=== PATIENT | female | born 1975 | race Caucasian/White ===

== ENCOUNTER 2024-07-12 08:51 | Day surgery (SDC) | payer SELFPAY, OTHER ==
[2024-07-12] VITALS (11 sets, daily range): BP systolic 105–126; BP diastolic 62–79; PULSE 67–77; RESP 16–20; TEMP 36.7–37.4; O2SAT 96–100; BMI 32.1
--- NOTE | 2024-07-12 | EMB_PTH ---
PATIENT: MAYKEL MARR LOC: [facility] – [place] U#:[id number] AGE/SX: 48/F ROOM: RE07/12/[address]: Dr. Diana Danielle DO : 1975 BED: DIS: 07/12/2024 SPEC #: [id number] RECD: 07/12/24 13:37 STATUS: HAY REChristal #: [id number] SAMMI: 07/12/24 00:[address]: Diana Danielle DEPT: SURGICAL PATHOLOGY RECD BY: Henrique Zavaleta ENTERED: 07/12/24 13:38 SP TYPE: ENDOM BX/C JUANCARLOS DR: Dr. Yimi Miles MD Tissues: Endometrium, NOS Procedures: Surgery Specimen Level IV HEADER OPERATION: Hysteroscopy with dilation and curettage PRE-OP DIAGNOSIS: Menorrhagia TISSUE SUBMITTED: Endometrial curettings MICROSCOPIC DIAGNOSIS Endometrial curettings: Weakly proliferative endometrium with extensive exogenous hormone effects. See comment. DANIEL. 07/13/2024 COMMENT A few fragments of polypoid appears may represent fragments of polyp. MICROSCOPIC DESCRIPTION Slides are reviewed. GROSS DESCRIPTION Received in fixative is one container labeled with the patient's name and designated Endometrial curettings. The specimen consists of a telfa pad on which there is at most 1cc of clotted blood with del real tissue content. Also floating in the container is approximately an 8mm collection of blood clot. The entire specimen is submitted in one cassette. ADALBERTO 07/12/2024 TC:5 CPT:18385
[2024-07-12 09:21] LABS: Internal QC Validated? YES +Cl - CLEAR BKGD; Pregnancy, Urine Negative Negative
--- NOTE | 2024-07-12 10:28 | PCM.HP.BLA ---
History and Physical Date of Admission: 07/12/24 Intake Vital Signs 05/31/2410:04 Height 5 ft 4 in Weight: 187 lb BMI 32.1 BP 119/82 H Intake Visit Reasons: BLEEDING [employer] Required: No Is patient in pain?: No Allergies No Known Allergies Allergy (Unverified 05/31/24 10:04) Medications ?Medication ?Instructions ?Recorded ?Confirmed ?Type ibuprofen 800 mg tablet 800 mg PO Q8H 7 days #21 tabs 05/31/24 05/31/24 Rx megestrol 40 mg tablet 40 mg PO QDAY #30 tabs 05/31/24 05/31/24 Rx Post menopausal: No Patient : No : No PFSH Surgical History (Updated 05/31/24 @ 10:05 by Alix Gagnon) S/P cholecystectomy Family History (Updated 05/31/24 @ 10:05 by Alix Gagnon) Mother Heart disease Hypertension Diabetes Social History (Updated 05/31/24 @ 10:06 by Alix Gagnon) Smoking Status: Never smoker alcohol intake: never substance use type: does not use additional social history: - Gregorio HPI BLEEDING Details: MAYKEL MARR is a 48 year old who presents for discussion about 5 straight weeks of bleeding. She states that she went 7 weeks without a period, then started very heavy bleeding with cramping and it did not stop despite progesterone therapy given to her by her pcp (10 mg daily). Ultrasound shows a 13 cm uterus and a 21mm lining. She had 9 vaginal deliveries and has the complaint of frequent episodes of stress incontinence. History 9 Elective abortions Hx Para 9 Spontaneous abortions Hx # Term Pregnancies Ectopic pregnancies Hx # Pregnancies Multiple births # of living children ROS Const ROS Unobtainable: All systems reviewed & are unremarkable except as noted in H Resp Resp: Reports system reviewed and no additional complaints, except as documented; Denies cough GI GI: Reports as per HPI Psych Psych: Reports system reviewed and no additional complaints, except as documented Exam Const General: cooperative, healthy appearing, comfortable and no acute distress Resp Effort & Inspection: normal respiratory effort Other: unable to examine due to heavy bleeding. Skin General: no rashes or lesions noted Psych Appearance: grossly normal Speech and Movement: speech and movement normal Coding Level of Care Code Off vis,new,level 4 Diagnoses Abnormal uterine bleeding N93.9 Assessment and Plan Assessment and Plan (1) Abnormal uterine bleeding: Status: Acute Plan: due to size of uterus and thickness of the endometrium, recommend a dilation and curettage and then if benign, she is considering a hysterectomy with sling procedure. Will need to consult Dr. Armas. For now she is not ready starting megace + ibuprofen. After discussing the patient's diagnosis and treatment plan options, patient wishes to proceed with surgical management. I have discussed with the patient the risks, benefits, and alternatives of the procedure which include but are not limited to risks of anesthesia, bleeding, infection, possible damage to bowel, bladder, or surrounding vasculature which could lead to additional surgery to evaluate any complications. Patient agrees to procedure and wishes to proceed. ACOG/uptodate references given for additional information regarding procedure. plan hysteroscopy dilation and curettage.
--- NOTE | 2024-07-12 10:36 | PRE.ANES_ITS ---
ASA Classification* ASA Classification ASA Classification: 2 Assessment & Plan Anesthesia* Anesthesia Assessment Anesthesia Assessment: Discussed sedation and/or anesthesia options, risks, benefits, and alternatives with patient/parents/legal guardian/POA. Questions invited. The patient/parents/legal guardian/POA seems to understand and agrees to proceed with anesthesia plan. Reviewed the physical assessment, medical history, allergy history and patient home medications list prior to surgery/procedure/anesthetic and documented any changes. Performed airway and anesthesia risk assessments. Anesthesia Type Anesthesia Type: MAC History Source History Obtained from:: Patient and Chart Anesthesia Focused Assessment* Temperature: 98.3 F Pulse Rate: 76 Blood Pressure: 126/79 Respiratory Rate: 16 Pulse Ox: 100 Oxygen Delivery Method: Room Air Airway Assessment Mouth opens: >3 cm Mallampati Score: II Teeth Condition: Dentures (Patient has upper and lower dentures. 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 When Was Last Pacemaker Check QUESTION #4 FULL TEXT: You/Your Family Experience fever (hyperthermia) with Anesthesia Last Oral Intake Last Oral intake: Last Oral Intake NPO since 00:00 07/12/24 09:21 Meds taken in AM with sips of No 07/12/24 09:21 water? Meds patient instructed to take am of surgery PONV PONV - termite control service representative: PONV - termite control service representative Female Yes 07/04/24 09:01 HX of Motion Sickness No 07/04/24 09:01 HX of N/V After Surgery No 07/04/24 09:01 Non-Smoker Yes 07/04/24 09:01 Duration of Surgery greater No 07/04/24 09:01 than 60 minutes Number of Risk Factors 2 07/04/24 09:01 PONV Score Moderate Risk 07/04/24 09:01 Height & Weight Height & Weight: Anesthesia: Height & Weight Height 5 ft 4 in 07/12/24 09:21 Weight: 85 kg 07/12/24 09:21 Body Mass Index (BMI) 32.1 07/12/24 09:21 Respiratory Assessment Respiratory Assessment - termite control service representative: Respiratory Tract Infection Hx - termite control service representative Hx Respiratory Tract Infection No 07/04/24 09:01 STOP Sleep Apnea STOP Sleep Apnea - termite control service representative: STOP Sleep Apnea - termite control service representative Hx Hypertension No 07/04/24 09:01 Hx Sleep Apnea No 07/04/24 09:01 CPAP BIPAP Do you snore loudly (louder No 07/04/24 09:01 than talking or can be heard Do you often feel tired/ No 07/04/24 09:01 fatigued/ sleepy during daytime? Has anyone observed you stop No 07/04/24 09:01 breathing during sleep? STOP Results Negative 07/04/24 09:01 QUESTION #5 FULL TEXT : Do you snore loudly (louder than talking or can be heard through closed doors)? 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 Specify any problems Hx of Preganancy in last 3 No 07/04/24 09:01 Months Nurse Filling Out Transfusion MGRIFFITH 07/04/24 09:01 & Questions: Date: 07/04/24 07/04/24 09:01 Time: 09:03 07/04/24 09:01 Patient unable to answer at this time (ie. confused, unrespo /Reproduction History /Reproductive History - termite control service representative: /Reproductive Hx- termite control service representative Hx Now No 07/04/24 09:01 Gestational Age (in weeks): EDC: Hx Hx Para Hx Section SAB No 07/04/24 09:01 [facility] Medical History Wears glasses Wears dentures Restless legs History of hiatal hernia Heartburn Shortness of breath on exertion Home Medications ?Medication ?Instructions ?Recorded ?Last Taken ?Type megestrol 40 mg tablet 40 mg PO QDAY #30 tabs 05/31/24 Unknown Rx Allergy/AdvReac Type Severity Reaction Status Date / Time No Known Allergies Allergy Verified 07/12/24 09:21 Family History Mother Heart disease Hypertension Diabetes Surgical History S/P cholecystectomy Social History Smoking Status: Never smoker alcohol intake: never substance use type: does not use additional social history: Suzette Perkins Review of Systems (Anesthesia) ROS Narrative System reviewed and no additional complaints, except as documented.
[2024-07-12] MEDS: Lidocaine 1% (30 ml sdv) 30 ML Vial (11:34)
--- NOTE | 2024-07-12 11:43 | PCM.OPRPT ---
Problems Associated Problem List Diagnoses (1) Abnormal uterine bleeding: Multi Select Codes Urinary/Genital Urinary/Genital CPT Codes: 11052 Hysteroscopy,EMC, Polypectomy Operative Report (Standard) Operative Information Date of Procedure: 07/12/24 Pre-Operative Diagnosis: abnormal uterine bleeding, thickened endometrium Post-Operative Diagnosis: abnormal uterine bleeding, thickened endometrium Surgery/Procedure Performed: hysteroscopy dilation and curettage rvda master certified rv technician: No Type of Anesthesia: MAC and Topical Anesth RN Documented Start/Stop Times: Operation Date: 07/12/24 11:00 Case Time Into Pre-Op 07/12/24 08:59 Anesthesia Start 07/12/24 11:20 Into Room 07/12/24 11:20 Out of Pre-Op 07/12/24 11:20 Procedure Start 07/12/24 11:33 Procedure End 07/12/24 11:42 Procedure Start Time: 11:33 Procedure Stop Time: 11:42 Select all DRAINS/GRAFTS/IMPLANTS that apply: None Estimated Blood Loss: 5cc Specimen collected: Yes Description of specimen(s) removed: endometrial curetting's Description of surgery: Patient was prepped and draped in a normal sterile fashion under MAC anesthesia. A weighted speculum was placed in the vagina and the anterior lip of the cervix was grasped with a single-tooth tenaculum. A paracervical block was placed with 1% lidocaine. Cervix was progressively dilated to allow passage of a 5 mm hysteroscope. The lining was fully visualized and noted to have one small polyp like structure and a proliferative appearing endometrium. Uterine sounded to 13 cm. Curettage was performed and tissue was sent to pathology. All instruments were removed from the vagina and excellent hemostasis was noted. Patient was awoken and taken to recovery in stable condition. Surgical Findings: proliferative appearing endometrium and a polyp looking structure Complications Complications: No Admit VTE Documentation VTE Present on Admission: No VTE Mechan Device Prophylaxis: SCD's
--- NOTE | 2024-07-12 11:45 | PCM.DC ---
Discharge Instructions Diet Discharge Diet: No restrictions DC O2, CPAP, BIPAP needs Home O2 Discharge instructions: No Dressing / Incision Discharge Activity: Return to Normal Activity, May Shower and May Take a Tub Bath (after 1 week) May resume sexual activity in: 1-2 weeks Weight Bearing Status: Weight bearing as tolerated Lifting Restrictions: none Dressing / Incision Call your doctor if you observe: Fever of 101 or Higher, Using more than 1 pad per hour, Shortness of breath and Uncontrolled pain Follow Up Care Please Follow Up With: Diana Danielle DO When: Call [phone] to schedule appointment. Test Results: Test results from this visit will be discussed in further detail at your follow-up appointment, if applicable. Discharge Plan Admission Primary Reason for Your Visit: dilation and curettage Attending Provider: Diana Danielle Primary Care Provider: Yimi Miles Instructions Print Language: Gambian Discharge Orders/Prescriptions Prescriptions: New ibuprofen 800 mg tablet 800 mg PO Q8H PRN (Reason: pain) Qty: 30 0RF Continued megestrol 40 mg tablet 40 mg PO QDAY Qty: 30 3RF Disposition Disposition (needs filled in before D/C Order can be placed): Home, Self Care
--- NOTE | 2024-07-12 11:50 | PCM.POST.ANE ---
Anesthesia: Postop Eval I Current Vital Signs Temperature: 98.1 F Pulse Rate: 77 Blood Pressure: 114/64 Respiratory Rate: 20 Pulse Ox: 100 Oxygen Delivery Method: Room Air Assessment Airway patent: Yes Spontaneous unlabored respirations: Yes Mental status: Awake nausea: No Vomiting: No Anesthesia Complication: No Fluid Hydration Crystalloid volume administer (ml): 15 Total IV fluid infused: 15 Progress Note Anesthesia document: Postop Eval 1 completed: Yes
--- NOTE | 2024-07-12 11:57 | PCM.PRE.AN2 ---
ASA Classification* ASA Classification ASA Classification: 2 Assessment & Plan Anesthesia* Anesthesia Assessment Anesthesia Assessment: Discussed sedation and/or anesthesia options, risks, benefits, and alternatives with patient/parents/legal guardian/POA. Questions invited. The patient/parents/legal guardian/POA seems to understand and agrees to proceed with anesthesia plan. Reviewed the physical assessment, medical history, allergy history and patient home medications list prior to surgery/procedure/anesthetic and documented any changes. Performed airway and anesthesia risk assessments. 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 When Was Last Pacemaker Check QUESTION #4 FULL TEXT: You/Your Family Experience fever (hyperthermia) with Anesthesia Last Oral Intake Last Oral intake: Last Oral Intake NPO since 00:00 07/12/24 09:21 Meds taken in AM with sips of No 07/12/24 09:21 water? Meds patient instructed to take am of surgery PONV PONV - lawn sprinkler servicer: PONV - lawn sprinkler servicer Female Yes 07/04/24 09:01 HX of Motion Sickness No 07/04/24 09:01 HX of N/V After Surgery No 07/04/24 09:01 Non-Smoker Yes 07/04/24 09:01 Duration of Surgery greater No 07/04/24 09:01 than 60 minutes Number of Risk Factors 2 07/04/24 09:01 PONV Score Moderate Risk 07/04/24 09:01 Height & Weight Height & Weight: Anesthesia: Height & Weight Height 5 ft 4 in 07/12/24 09:21 Weight: 85 kg 07/12/24 09:21 Body Mass Index (BMI) 32.1 07/12/24 09:21 Respiratory Assessment Respiratory Assessment - lawn sprinkler servicer: Respiratory Tract Infection Hx - lawn sprinkler servicer Hx Respiratory Tract Infection No 07/04/24 09:01 STOP Sleep Apnea STOP Sleep Apnea - lawn sprinkler servicer: STOP Sleep Apnea - lawn sprinkler servicer Hx Hypertension No 07/04/24 09:01 Hx Sleep Apnea No 07/04/24 09:01 CPAP BIPAP Do you snore loudly (louder No 07/04/24 09:01 than talking or can be heard Do you often feel tired/ No 07/04/24 09:01 fatigued/ sleepy during daytime? Has anyone observed you stop No 07/04/24 09:01 breathing during sleep? STOP Results Negative 07/12/24 11:50 QUESTION #5 FULL TEXT : Do you snore loudly (louder than talking or can be heard through closed doors)? 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 Specify any problems Hx of Preganancy in last 3 No 07/04/24 09:01 Months Nurse Filling Out Transfusion MGRIFFITH 07/04/24 09:01 & Questions: Date: 07/04/24 07/04/24 09:01 Time: 09:03 07/04/24 09:01 Patient unable to answer at this time (ie. confused, unrespo /Reproduction History /Reproductive History - lawn sprinkler servicer: /Reproductive Hx- lawn sprinkler servicer Hx Now No 07/04/24 09:01 Gestational Age (in weeks): EDC: Hx Hx Para Hx Section SAB No 07/04/24 09:01 Active Medications Active Medications: Current Medications Generic Name Dose Route Start Last Admin Trade Name Freq PRN Reason Stop Dose Admin Hydrocodone Bitart/Acetaminophen 1 - 2 tablet 07/12/24 11:46 Hydrocodone Bitartrate/Apap 5/325 Tablet PO Q6H PRN PRN Pain Score 1-5 Ondansetron HCl 4 mg 07/12/24 11:46 Ondansetron 4 Mg/2 Ml Vial IM X1 PRN NAUSEA PFSH Medical History Wears glasses Wears dentures Restless legs History of hiatal hernia Heartburn Shortness of breath on exertion Home Medications ?Medication ?Instructions ?Recorded ?Last Taken ?Type NK 07/27/24 Unknown History Allergy/AdvReac Type Severity Reaction Status Date / Time No Known Allergies Allergy Verified 07/27/24 11:07 Family History Mother Heart disease Hypertension Diabetes Surgical History S/P dilatation and curettage Status post hysteroscopic polypectomy S/P cholecystectomy Social History Smoking Status: Never smoker alcohol intake: never substance use type: does not use additional social history: Suzette Perkins Review of Systems (Anesthesia) ROS Narrative System reviewed and no additional complaints, except as documented.
--- NOTE | 2024-07-13 03:35 | POSTOPAN2_ITS ---
Anesthesia Postop Eval I Sum Postop Eval Completion status Anesthesia document: Postop Eval 1 completed: Yes Anesthesia Postop Eval I Summary Anesthesia Postop Eval I Summary: Anesthesia Postop Eval I: Assessment Summary Airway patent Yes 07/12/24 11:51 FINGER [email or web address] [email or web address] Spontaneous unlabored Yes 07/12/24 11:51 FINGER BUFF [email or web address] respirations Mental status Awake 07/12/24 11:51 FINGER BUFF [email or web address] nausea No 07/12/24 11:51 FINGER BUFF [email or web address] Vomiting No 07/12/24 11:51 FINGER BUFF [email or web address] Anesthesia Postop Eval I: Fluid Summary Crystalloid volume administer 15 07/12/24 11:51 FINGER BUFF [email or web address] (ml) Colloids volume administered ( ml) Blood Product volume administered (ml) Total IV fluid infused 15 07/12/24 11:51 FINGER BUFF [email or web address] Anesthesia Postop Eval I: Summary Notes Anesthesia Complication No 07/12/24 11:51 FINGER BUFF [email or web address] Anesthesia Complication Comment: Post-operative progress note Anesthesia: Postop Eval II Evaluation Mental status: Awake and Calm Pain Level: 1 nausea: No Vomiting: No Complications Anesthesia Complication: No
--- NOTE | 2024-07-13 03:35 | PCM.POSTANE2 ---
Anesthesia Postop Eval I Sum Postop Eval Completion status Anesthesia document: Postop Eval 1 completed: Yes Anesthesia Postop Eval I Summary Anesthesia Postop Eval I Summary: Anesthesia Postop Eval I: Assessment Summary Airway patent Yes 07/12/24 11:51 COMMUNICATION [email or web address] Spontaneous unlabored Yes 07/12/24 11:51 COMMUNICATION [email or web address] respirations Mental status Awake 07/12/24 11:51 COMMUNICATION [email or web address] nausea No 07/12/24 11:51 COMMUNICATION [email or web address] Vomiting No 07/12/24 11:51 COMMUNICATION [email or web address] Anesthesia Postop Eval I: Fluid Summary Crystalloid volume administer 15 07/12/24 11:51 COMMUNICATION [email or web address] (ml) Colloids volume administered ( ml) Blood Product volume administered (ml) Total IV fluid infused 15 07/12/24 11:51 COMMUNICATION [email or web address] Anesthesia Postop Eval I: Summary Notes Anesthesia Complication No 07/12/24 11:51 COMMUNICATION [email or web address] Anesthesia Complication Comment: Post-operative progress note Anesthesia: Postop Eval II Evaluation Mental status: Awake and Calm Pain Level: 1 nausea: No Vomiting: No Complications Anesthesia Complication: No
== END 2024-07-12 13:41 | disposition home or self-care (01) ==
LOC: SDC 08:52 → AC 08:54
PROVIDERS: PCP Family Medicine; Referring Provider Obstetrics & Gynecology; Visit Provider Obstetrics & Gynecology
PROC: 0UDB8ZZ Extraction of Endometrium, Via Natural or Artificial Opening Endoscopic (ICD-10-PCS; CPT 58558; principal; 2024-07-12 10:50)
DX: N93.9 Abnormal uterine and vaginal bleeding, unspecified (principal); N39.3 Stress incontinence (female) (male); R93.89 Abnormal findings on diagnostic imaging of other specified body structures; Z90.49 Acquired absence of other specified parts of digestive tract
CPT/HCPCS: 58558; 00952; 81025; 86850; 86900; 86901; 88305; A4216; J2405